=== PATIENT | female | born 1945 | race Caucasian/White ===

== ENCOUNTER 2023-10-16 14:45 | Outpatient (RCR) | payer MEDICARE, SELFPAY | END 2023-11-14 12:53 | disposition home or self-care (01) | LOC: PURB 14:45 | PROVIDERS: ATTENDING PHYSICIAN Internal Medicine Critical Care Medicine; FAMILY PHYSICIAN Family Medicine | DX: J44.9 Chronic obstructive pulmonary disease, unspecified (principal) | CPT/HCPCS: 94625 ==

== ENCOUNTER → 2023-11-28 14:13 | Outpatient (REF) | payer MEDICARE, SELFPAY | LOC: PAVMRI 14:13 | PROVIDERS: ATTENDING PHYSICIAN Specialist; FAMILY PHYSICIAN Family Medicine | DX: G95.9 Disease of spinal cord, unspecified (principal) | CPT/HCPCS: 72141 ==

== ENCOUNTER 2023-12-04 14:45 | Outpatient (RCR) | payer MEDICARE, SELFPAY | END 2023-12-07 10:25 | disposition home or self-care (01) | LOC: PURB 14:45 | PROVIDERS: ATTENDING PHYSICIAN Internal Medicine Critical Care Medicine; FAMILY PHYSICIAN Family Medicine | DX: J44.9 Chronic obstructive pulmonary disease, unspecified (principal) | CPT/HCPCS: 94625 ==

== ENCOUNTER → 2023-12-11 16:19 | Outpatient (REF) | payer MEDICARE, SELFPAY ==
[2023-12-11 18:10] LABS: Creatine Phosphokinase 54 U/L (30-135)
[2023-12-11 19:18] LABS: Folate 9.3 ng/ml (2.76-20); Vitamin B12 310 pg/ml (239-931)
[2023-12-14 20:22] LABS: Aldolase 4.9 U/L (1.2-7.6)
== END ==
LOC: REG 16:19
PROVIDERS: ATTENDING PHYSICIAN Specialist; FAMILY PHYSICIAN Family Medicine
DX: R53.1 Weakness (principal); D51.8 Other vitamin B12 deficiency anemias
CPT/HCPCS: 36415; 82085; 82550; 82607; 82746; 86041

== ENCOUNTER → 2024-01-15 14:09 | Outpatient (REF) | payer MEDICARE, SELFPAY | LOC: PAVMRI 14:09 | PROVIDERS: ATTENDING PHYSICIAN Specialist; FAMILY PHYSICIAN Radiology Vascular & Interventional Radiology | DX: M54.16 Radiculopathy, lumbar region (principal) | CPT/HCPCS: 72148 ==

== ENCOUNTER → 2024-02-20 14:34 | Outpatient (REF) | payer MEDICARE, SELFPAY | LOC: RAD 14:34 | PROVIDERS: ATTENDING PHYSICIAN Physician Assistant Medical; FAMILY PHYSICIAN Family Medicine | DX: I73.9 Peripheral vascular disease, unspecified (principal); M62.89 Other specified disorders of muscle | CPT/HCPCS: 93922; 93925 ==

== ENCOUNTER → 2024-02-20 16:14 | Outpatient (REF) | payer MEDICARE, SELFPAY ==
[2024-02-20 17:11] LABS: ALT (SGPT) 16 U/L (0-35); AST (SGOT) 29 U/L (14-36); Albumin 4.1 g/dl (3.5-5.0); Alkaline Phosphatase 96 U/L (38-126); Blood Urea Nitrogen 23 mg/dl (7-17); Calcium 10.1 mg/dl (8.4-10.2); Carbon Dioxide 29 mmol/L (22-30); Chloride 102 mmol/L (98-107); Glucose 124 mg/dl (70-99); HDL Cholesterol 83 mg/dl; LDL Cholesterol, Calculated 30 mg/dl; Potassium 4.3 mmol/L (3.5-5.1); Sodium 136 mmol/L (135-145); Total Bilirubin 0.3 mg/dl (0.2-1.3); Total Cholesterol 138 mg/dl (50-199); Total Protein 6.5 g/dl (6.3-8.2); Triglyceride 125 mg/dl (10-149); Very Low Density Lipoprotein 25 mg/dl (0-30); eGFR > 60.00
== END ==
LOC: REG 16:14
PROVIDERS: ATTENDING PHYSICIAN Family Medicine
DX: E78.5 Hyperlipidemia, unspecified (principal)
CPT/HCPCS: 36415; 80053; 80061

== ENCOUNTER → 2024-04-21 12:00 | Outpatient (REF) | payer MEDICARE, SELFPAY | LOC: HWRAD 12:00 | PROVIDERS: ATTENDING PHYSICIAN Surgery Vascular Surgery; FAMILY PHYSICIAN Family Medicine | DX: I77.3 Arterial fibromuscular dysplasia (principal) | CPT/HCPCS: 70496; 70498; Q9967 ==

== ENCOUNTER → 2024-05-14 11:47 | Outpatient (REF) | payer MEDICARE, SELFPAY | LOC: RAD 11:47 | PROVIDERS: ATTENDING PHYSICIAN Nurse Practitioner Family | DX: R06.02 Shortness of breath (principal) | CPT/HCPCS: 71046 ==

== ENCOUNTER → 2024-05-23 11:34 | Outpatient (REF) | payer MEDICARE, SELFPAY | LOC: RAD 11:34 | PROVIDERS: ATTENDING PHYSICIAN Physician Assistant; FAMILY PHYSICIAN Family Medicine | DX: M79.605 Pain in left leg (principal); M81.0 Age-related osteoporosis without current pathological fracture | CPT/HCPCS: 73502; 73552 ==

== ENCOUNTER → 2024-06-25 09:27 | Outpatient (REF) | payer MEDICARE, SELFPAY ==
[2024-06-25 09:53] LABS: Ionized Calcium 1.15 mMOL/L (1.15-1.33)
[2024-06-25 09:58] LABS: % Basophils 0.7 % (0-2); % Eosinophils 2.9 % (0-6); % Immature Granulocytes 0.1 % (0-0.5); % Lymphocytes 20.1 % (20.5-51.1); % Monocytes 7.6 % (1.7-9.3); % Neutrophils 68.6 % (42.2-75.2); Absolute Basophils 0.1 10^3/uL (0-0.2); Absolute Eosinophils 0.2 10^3/uL (0-0.7); Absolute Lymphocytes 1.5 10^3/uL (1.2-3.4); Absolute Monocytes 0.6 10^3/uL (0.1-0.6); Absolute Neutrophils 5.3 10^3/uL (1.4-6.5); Hematocrit 48.8 % (37.0-47.0); Hemoglobin 16.7 g/dL (12.0-16.0); Mean Corp Hgb Conc. 34.2 g/dL (33.0-37.0); Mean Corpuscular Hgb 32.7 pg (27.0-31.0); Mean Corpuscular Volume 95.5 fL (81.0-99.0); Mean Platelet Volume 11.4 fL (7.4-10.4); Nucleated Red Blood Cells % 0 %; Platelet Count 213 10^3/uL (130-400); Red Blood Cell Count 5.11 10^6/uL (4.20-5.40); White Blood Cell Count 7.7 10^3/uL (4.8-10.8)
[2024-06-25 10:53] LABS: ALT (SGPT) 17 U/L (0-35); AST (SGOT) 30 U/L (14-36); Albumin 4.3 g/dl (3.5-5.0); Alkaline Phosphatase 81 U/L (38-126); Blood Urea Nitrogen 20 mg/dl (7-17); Calcium 9.7 mg/dl (8.4-10.2); Carbon Dioxide 28 mmol/L (22-30); Chloride 102 mmol/L (98-107); Glucose 89 mg/dl (70-99); HDL Cholesterol 75 mg/dl; LDL Cholesterol, Calculated 52 mg/dl; Potassium 4.7 mmol/L (3.5-5.1); Sodium 140 mmol/L (135-145); Total Bilirubin 0.6 mg/dl (0.2-1.3); Total Cholesterol 150 mg/dl (50-199); Total Protein 6.8 g/dl (6.3-8.2); Triglyceride 115 mg/dl (10-149); Very Low Density Lipoprotein 23 mg/dl (0-30); eGFR > 60.00
[2024-06-25 11:20] LABS: TSH Reflex To Free T4 2.56 uIU/ml (0.47-4.68)
[2024-06-26 15:45] LABS: Iron 115 ug/dl (37-170)
[2024-06-26 16:22] LABS: Ferritin 23.1 ng/ml (11.1-264.0)
== END ==
LOC: REG 09:27
PROVIDERS: ATTENDING PHYSICIAN Family Medicine
DX: I10 Essential (primary) hypertension (principal); R73.03 Prediabetes; E78.2 Mixed hyperlipidemia; E21.3 Hyperparathyroidism, unspecified; R71.8 Other abnormality of red blood cells
CPT/HCPCS: 36415; 80053; 80061; 82330; 82728; 83540; 83970; 84443; 85025

== ENCOUNTER → 2024-07-16 14:34 | Outpatient (REF) | payer MEDICARE, SELFPAY | LOC: WDC 14:34 | PROVIDERS: ATTENDING PHYSICIAN Obstetrics & Gynecology; FAMILY PHYSICIAN Family Medicine | DX: Z12.31 Encounter for screening mammogram for malignant neoplasm of breast (principal) | CPT/HCPCS: 77063; 77067 ==

== ENCOUNTER → 2024-07-18 15:44 | Outpatient (REF) | payer MEDICARE, SELFPAY | LOC: MRI 3T 15:44 | PROVIDERS: ATTENDING PHYSICIAN Physician Assistant; FAMILY PHYSICIAN Family Medicine | DX: M25.552 Pain in left hip (principal); M70.62 Trochanteric bursitis, left hip; M79.652 Pain in left thigh | CPT/HCPCS: 73718; 73721 ==

== ENCOUNTER → 2024-07-21 14:35 | Outpatient (REF) | payer MEDICARE, SELFPAY | LOC: RAD 14:35 | PROVIDERS: ATTENDING PHYSICIAN Internal Medicine Rheumatology; FAMILY PHYSICIAN Family Medicine | DX: M81.0 Age-related osteoporosis without current pathological fracture (principal) | CPT/HCPCS: 77080 ==

== ENCOUNTER → 2024-10-31 11:55 | Outpatient (REF) | payer MEDICARE, SELFPAY ==
[2024-10-31 12:55] LABS: ALT (SGPT) 18 U/L (0-35); AST (SGOT) 30 U/L (14-36); Albumin 4.2 g/dl (3.5-5.0); Alkaline Phosphatase 61 U/L (38-126); Blood Urea Nitrogen 18 mg/dl (7-17); Calcium 9.5 mg/dl (8.4-10.2); Carbon Dioxide 30 mmol/L (22-30); Chloride 99 mmol/L (98-107); Glucose 100 mg/dl (70-99); Potassium 4.9 mmol/L (3.5-5.1); Sodium 137 mmol/L (135-145); Total Bilirubin 0.5 mg/dl (0.2-1.3); Total Protein 6.6 g/dl (6.3-8.2); eGFR > 60.00
== END ==
LOC: REG 11:55
PROVIDERS: ATTENDING PHYSICIAN Physician Assistant; FAMILY PHYSICIAN Family Medicine
DX: E55.9 Vitamin D deficiency, unspecified (principal); M81.0 Age-related osteoporosis without current pathological fracture; Z79.899 Other long term (current) drug therapy
CPT/HCPCS: 36415; 80053; 82306

== ENCOUNTER → 2025-01-09 16:39 | Outpatient (REF) | payer MEDICARE, SELFPAY | LOC: RAD 16:39 | PROVIDERS: ATTENDING PHYSICIAN Nurse Practitioner Family | DX: R07.81 Pleurodynia (principal) | CPT/HCPCS: 71101 ==

== ENCOUNTER → 2025-03-31 14:47 | Outpatient (REF) | payer MEDICARE, SELFPAY | LOC: RCS 14:47 | PROVIDERS: ATTENDING PHYSICIAN Internal Medicine Cardiovascular Disease; FAMILY PHYSICIAN Family Medicine | DX: R06.09 Other forms of dyspnea (principal) | CPT/HCPCS: 93306 ==

== ENCOUNTER → 2025-04-29 15:48 | Outpatient (REF) | payer MEDICARE, SELFPAY ==
[2025-04-29 16:58] LABS: ALT (SGPT) 13 U/L (0-35); AST (SGOT) 22 U/L (14-36); Albumin 4.1 g/dl (3.5-5.0); Alkaline Phosphatase 79 U/L (38-126); Blood Urea Nitrogen 25 mg/dl (7-17); Calcium 9.7 mg/dl (8.4-10.2); Carbon Dioxide 29 mmol/L (22-30); Chloride 102 mmol/L (98-107); Glucose 117 mg/dl (70-99); Potassium 4.5 mmol/L (3.5-5.1); Total Protein 6.5 g/dl (6.3-8.2); eGFR > 60.00
[2025-04-29 17:04] LABS: Sodium 135 mmol/L (135-145)
[2025-04-29 17:15] LABS: Vitamin D, 25-OH*** 43.4 ng/mL (30-80)
== END ==
LOC: REG 15:48
PROVIDERS: ATTENDING PHYSICIAN Internal Medicine Rheumatology; FAMILY PHYSICIAN Family Medicine
DX: M15.9 Polyosteoarthritis, unspecified (principal); M81.0 Age-related osteoporosis without current pathological fracture
CPT/HCPCS: 36415; 80053; 82306; 82550

== ENCOUNTER 2025-06-16 06:22 | Day surgery (SDC) | payer MEDICARE, SELFPAY ==
[2025-06-16 12:59] VITALS: BMI 21.3
[2025-06-16 13:00] VITALS: BP 161/82
[2025-06-16] MEDS: NORMOSOL-R/PLASMALYTE-A 1000 IV (13:12)
[2025-06-16] MEDS: TYLENOL 1000 MG PO (13:13)
--- NOTE | 2025-06-16 14:34 | W.SUR.PREOP ---
Pre-Operative Surgical Note
-
I have examined this patient prior to the performance of the scheduled procedure.
The patient's condition is unchanged from the time of the current History and
Physical and the patient is able to undergo the scheduled procedure.
--- NOTE | 2025-06-16 14:34 | HP.FOC2 ---
Focused History & Physical
Chief Complaint
HPI:
Chief Complaint: Right inguinal hernia
HPI / Indication for Planned Procedure: This is a an 79-year-old female who presents with a symptomatic right inguinal hernia. Will plan for a open right inguinal hernia repair with mesh.
Relevant Past Medical History: Negative
Relevant Social History: Negative
Relevant Family History: Negative
Relevant Past Surgical History: Positive for
Review of Systems
Review of Pertinent Systems: All Systems Negative
Medication
See Medication form for detailed medications: Yes
Medication List (including Herbals & OTC):
cyclosporine 0.05 % eye drops in a dropperette (Restasis) 1 drp BOTH EYES BID 08/04/13
acetaminophen 500 mg tablet (Tylenol Extra Strength) 250 - 500 mg PO PRN PRN pain 02/13/18
atenolol 25 mg tablet 25 mg PO DAILY 01/01/20
aspirin 81 mg chewable tablet 81 mg PO DAILY #30 tabs 01/03/20
calcium 600 mg (as carbonate)-vitamin D3 5 mcg (200 unit) tablet 2 tab PO TID 06/10/25
simvastatin 20 mg tablet 20 mg PO QPM 06/10/25
umeclidinium 62.5 mcg-vilanterol 25 mcg/actuation powdr for inhalation (Anoro Ellipta) 1 inh inhalation DAILY 06/10/25
vit C 250 mg-vit E 90 mg-zinc 40 mg-copper 1 [id number] capsule (PreserVision AREDS-2) 1 tab PO DAILY 06/10/25
zoledronic acid 5 mg/100 mL in mannitol 5 %-water intravenous piggybck (Reclast) 5 mg IV Q12M 06/10/25
Lactobacillus acidophilus 500 million cell tablet 500 mmu cells PO DAILY 06/16/25
Medications Reviewed: Yes
Allergies and Reactions
Patient has Allergies: Yes
Noted Allergies and Reactions:
Allergy/AdvReac Type Severity Reaction Status Date / Time
alginic acid (From Gaviscon) Allergy REBOUND Verified 06/16/25 12:54
HEARTBURN
aluminum hydroxide (From Allergy REBOUND Verified 06/16/25 12:54
Gaviscon) HEARTBURN
amlodipine (From Norvasc) Allergy DIZZINESS Verified 06/16/25 12:54
bacitracin Allergy SWELLING Verified 06/16/25 12:54
OF EYE LIDS
calcium carbonate (From Allergy REBOUND Verified 06/16/25 12:54
Gaviscon) HEARTBURN
cortisone (Cortisone) Allergy facial Verified 06/16/25 12:54
redness
and
swelling
dexlansoprazole (From Allergy BALANCE Verified 06/16/25 12:54
Dexilant) ISSUES
diclofenac (From Voltaren) Allergy Itching Verified 06/16/25 12:54
domperidone Allergy HEADACHE Verified 06/16/25 12:54
erythromycin base Allergy CHOLESTATIC Verified 06/16/25 12:54
HEPATITIS
esomeprazole (From Nexium) Allergy HEARTBURN Verified 06/16/25 12:54
REBOUND
famotidine (From Pepcid) Allergy BALANCE Verified 06/16/25 12:54
ISSUES
gabapentin (From Neurontin) Allergy BLURRY Verified 06/16/25 12:54
VISION,
SPACEY
FEELING
gluten Allergy INTOLERANT Verified 06/16/25 12:54
lactose Allergy intolerant Verified 06/16/25 12:54
lansoprazole (From Prevacid) Allergy ACID Verified 06/16/25 12:54
ATTACK,
OFF BALANCE
loratadine Allergy takes Verified 06/16/25 12:54
brand name
only
losartan Allergy headache Verified 06/16/25 12:54
magnesium (From Gaviscon) Allergy REBOUND Verified 06/16/25 12:54
HEARTBURN
moxifloxacin (From Avelox) Allergy Nausea Verified 06/16/25 12:54
moxifloxacin HCl (From Allergy Nausea Verified 06/16/25 12:54
Avelox)
nebivolol (From Bystolic) Allergy HEADACHE Verified 06/16/25 12:54
nitrofurantoin Allergy acute Verified 06/16/25 12:54
(Nitrofurantoin) gastritis
nortriptyline Allergy OFF Verified 06/16/25 12:54
BALANCE,
SPACEY
FEELING
omeprazole (From Prilosec) Allergy HEADACHE/BLURRED Verified 06/16/25 12:54
VISION/HEEL
PAIN
pantoprazole (From Protonix) Allergy BALANCE Verified 06/16/25 12:54
ISSUES,
SPACEY
FEELING
prednisolone Allergy facial Verified 06/16/25 12:54
redness
and
swelling
prednisone Allergy facial Verified 06/16/25 12:54
redness
and
swelling
rabeprazole (From Aciphex) Allergy VERTIGO, Verified 06/16/25 12:54
PALPITATIONS,
RAPID
HEARTBEAT,
RED
BURNING
FACE/EAR
ranitidine (From Zantac) Allergy REBOUND Verified 06/16/25 12:54
HEARTBURN
sodium bicarbonate (From Allergy REBOUND Verified 06/16/25 12:54
Gaviscon) HEARTBURN
sucralfate (From Carafate) Allergy REBOUND Verified 06/16/25 12:54
HEARTBURN
sulfamethoxazole (From Allergy headache Verified 06/16/25 12:54
Bactrim)
tetanus and diphtheria Allergy TEMPORARY Verified 06/16/25 12:54
toxoids NERVE
DAMAGE
tetracycline (Tetracycline) Allergy acute Verified 06/16/25 12:54
gastritis
Tetracyclines Allergy ACUTE Verified 06/16/25 12:54
GASTRITIS
trimethoprim (From Bactrim) Allergy headache Verified 06/16/25 12:54
Yeast Allergy INTOLERANT Verified 06/16/25 12:54
Pertinent Physical Exam
All Other Systems: Negative
Head/Neck: Normal
Diagnosis / Assessment
This is a an 79-year-old female who presents with a symptomatic right inguinal hernia.
Plan / Procedure
Will plan for a open right inguinal hernia repair with mesh.
Anesthesia/Sedation to be done by Anesthesia Provider: Yes
--- NOTE | 2025-06-16 16:06 | W.IMMPOSTOP ---
Surgical Immed Post Op Note
-
Primary Surgeon: Sylvain Gonzalez MD
Assisting Surgeon: None
Pre-op Diagnosis: Right inguinal hernia
Post-op Diagnosis: Same
Procedure Performed:
1. Open right inguinal hernia repair with mesh.
2. Pragmatic right inguinal neurectomy x 2
Anesthesia Type: General
Specimen / Cultures: Right inguinal nerves x 2
Estimated Blood Loss: 3 cc
Complications: None
Operative Findings: Pantaloon hernia with both an indirect and indirect components. Hernia sac opened no palpable defect in the femoral space. After closing sac and performing a high ligation of the inguinal canal contents. The floor was
reinforced with a Bard soft uncoated polypropylene mesh cut to size.
--- NOTE | 2025-06-16 16:10 | OR.RPT ---
Operative Report
Operative Report
Patient Name: Gabriela Harman
: 1945
Date of Operation: 06/16/2025
Preoperative Diagnosis: Right inguinal hernia
Postoperative Diagnosis: Right inguinal hernia
Procedure(s):
1. Open right inguinal hernia repair with mesh (85842)
2. Pragmatic right inguinal neurectomy x 2 (26767)
Surgeon(s):
Dr. Gonzalez
Animal Shelter Clerk(s):
ANGELA Luong
Anesthesia: MAC
Estimated Blood Loss: 3 cc
Urine Output: None
Drains/Lines/Implants: 15x7.5cm Bard Soft uncoated polypropylene Mesh cut to size
Specimen / Cultures:
Inguinal nerves x 2
Indication for surgery: The patient has a history of groin pain and some asymmetry noted on exam and was found to have a right inguinal Hernia. Following review of therapeutic options they elected to undergo an open repair
Operative Findings: Pantaloon hernia with both an indirect and indirect components. Hernia sac opened no palpable defect in the femoral space. After closing sac and performing a high ligation of the inguinal canal contents. The floor was
reinforced with a Bard soft uncoated polypropylene mesh cut to size.
Details of the operation:
After induction of general anesthesia, the patient was prepped and draped in the supine position. A team timeout was performed confirming administration of DVT prophylaxis, IV antibiotics and SCDs. The ASIS and pubic tubercle were marked and an
incision was chosen along the course of a skin line. The skin was anesthetized with Lidocaine. An incision was made through the skin line and dissection carried down through subcutaneous tissue and Rah's fascia. The superficial epigastric vein
was identified and ligated. A Small Peterson wound retractor was used to provide exposure. The external oblique fibers were then divided in the direction of travel. The ilioinguinal and iliohypogastric nerves were identified and sacrificed in a
pragmatic fashion. Dissection was carried down to the floor, which revealed the following:
At the site of the indirect (internal) ring, there was a moderate size protrusion of preperitoneal fat, the hernia sac was identified, dissected and reduced off the cord structures.
No true cord lipoma was identified.
The direct space, floor of the canal revealed mild weakness.
The round ligament and inguinal contents were isolated and ligated high using Vicryl ties.
The floor of the canal was then reconstructed first by performing a Bassini type repair bringing the conjoined tendon and internal oblique muscle to the external oblique shelving edge and then by placing a 15 x 7.5 cm Bard soft uncoated
polypropylene mesh trimmed to size and secured it in place with interrupted 0-PDS sutures medially at the pubic tubercle, inferiorly along the inguinal ligament, laterally/superiorly in the conjoint tendon. Care was taken not to injure or entrap any
nerves. The external oblique fibers were then closed using a running 2-0 Vicryl suture. Rah's fascia was then closed with interrupted 2-0 Vicryl suture. The skin was closed in layers with interrupted 3-0 vicryl deep dermals followed by a
running subcuticular 4-0 Monocryl followed by dermabond. The patient returned to the Recovery Room in stable condition. Sponge and instrument counts were correct.
I was the attending physician and performed the procedure with assistance of the PA above. The assistance of ANGELA Luong was required due to the complexity of the procedure. During the procedure Fany assisted with retraction, resection, and
closure of the wound. I was present for all portions of the case, excluding skin closure.
Sylvain Gonzalez MD
[2025-06-16 16:15] VITALS: BP 126/54
[2025-06-16 16:30] VITALS: BP 136/56
[2025-06-16 16:45] VITALS: BP 143/56
== END 2025-06-16 16:55 | disposition home or self-care (01) ==
LOC: SDS 06:22
PROVIDERS: ATTENDING PHYSICIAN Surgery
DX: K40.90 Unilateral inguinal hernia, without obstruction or gangrene, not specified as recurrent (principal)
CPT/HCPCS: 49505; 88304

== ENCOUNTER → 2025-07-24 11:39 | Outpatient (REF) | payer MEDICARE, SELFPAY | LOC: HWRAD 11:39 | PROVIDERS: ATTENDING PHYSICIAN Surgery; FAMILY PHYSICIAN Family Medicine | DX: R10.31 Right lower quadrant pain (principal) | CPT/HCPCS: 74176 ==

== ENCOUNTER → 2025-08-07 08:54 | Outpatient (REF) | payer MEDICARE, SELFPAY ==
[2025-08-07 11:00] LABS: Hematocrit 50.6 % (37.0-47.0); Hemoglobin 16.9 g/dL (12.0-16.0); Mean Corp Hgb Conc. 33.4 g/dL (33.0-37.0); Mean Corpuscular Volume 97.7 fL (81.0-99.0); Nucleated Red Blood Cells % 0 %; Platelet Count 223 10^3/uL (130-400); Red Cell Dist. Width 13.2 % (11.5-14.5)
[2025-08-07 11:28] LABS: ALT (SGPT) 16 U/L (0-35); AST (SGOT) 29 U/L (14-36); Albumin 4.5 g/dl (3.5-5.0); Alkaline Phosphatase 55 U/L (38-126); Blood Urea Nitrogen 16 mg/dl (7-17); Calcium 9.4 mg/dl (8.4-10.2); Carbon Dioxide 31 mmol/L (22-30); Chloride 103 mmol/L (98-107); Glucose 81 mg/dl (70-99); HDL Cholesterol 81 mg/dl; LDL Cholesterol, Calculated 45 mg/dl; Potassium 5.1 mmol/L (3.5-5.1); Sodium 138 mmol/L (135-145); Total Protein 7.1 g/dl (6.3-8.2); Very Low Density Lipoprotein 28 mg/dl (0-30); eGFR > 60.00
== END ==
LOC: REG 08:54
PROVIDERS: ATTENDING PHYSICIAN Family Medicine
DX: E78.00 Pure hypercholesterolemia, unspecified (principal); I10 Essential (primary) hypertension; E21.3 Hyperparathyroidism, unspecified
CPT/HCPCS: 36415; 80053; 80061; 84443; 85025

== ENCOUNTER → 2025-09-30 14:27 | Outpatient (REF) | payer MEDICARE, SELFPAY | LOC: PAVMRI 14:27 | PROVIDERS: ATTENDING PHYSICIAN Family Medicine | DX: R26.9 Unspecified abnormalities of gait and mobility (principal); M54.16 Radiculopathy, lumbar region | CPT/HCPCS: 72148 ==